=== PATIENT | female | born 1995 | race Caucasian/White ===

== ENCOUNTER 2018-06-18 16:57 | Emergency (ER) | payer BC ==
[2018-06-18] MEDS: LIDOCAINE 4% CR TOP (17:43)
== END 2018-06-18 19:06 | disposition home or self-care (01) ==
LOC: FTE 16:57
DX: L02.213 Cutaneous abscess of chest wall (principal)
CPT/HCPCS: 10060; 99283-25

== ENCOUNTER 2018-06-20 07:19 | Emergency (ER) | payer BC | END 2018-06-20 08:32 | disposition home or self-care (01) | LOC: FTE 07:19 | DX: Z48.01 Encounter for change or removal of surgical wound dressing (principal) | CPT/HCPCS: 99281; Z7502 ==